=== PATIENT | male | born 2000 | race Asian ===

== ENCOUNTER 2019-11-10 22:03 | Emergency (ER) | payer MEDICARE, OTHER ==
[~2019-11-10] VITALS: Ht 170.2 cm; Wt 72.5 kg
[2019-11-10 22:55] LABS: HEMATOCRIT 45.7 % (41-53); HEMOGLOBIN 15.7 g/dL (13.5-17.5); LYMPHOCYTES % (AUTO) 21.4 % (22.0-44.0); MEAN CORPUSCULAR HEMOGLOBIN 29.9 pg (26.0-34.0); MEAN CORPUSCULAR HGB CONC 34.4 G/dL (31.0-37.0); MEAN CORPUSCULAR VOLUME 87 fL (80-100); NEUTROPHILS % (AUTO) 66.1 % (40.0-70.0); PLATELET COUNT (AUTO) 286 K/uL (150-450); RED BLOOD CELL COUNT(AUTO) 5.26 MIL/uL (4.50-5.90); RED CELL DISTRIBUTION WIDTH 12.7 % (11.5-14.5)
[2019-11-10 22:56] LABS: BASOPHILS % (AUTO) 0.3 % (0.0-2.0); LYMPHOCYTES # (AUTO) 1.7 K/uL (1.0-4.8); MONOCYTES # (AUTO) 0.9 K/uL (0.1-1.0); MONOCYTES % (AUTO) 11.2 % (2.0-9.0); NEUTROPHILS # (AUTO) 5.2 K/uL (1.8-7.7)
[2019-11-10 23:08] LABS: ANION GAP 5 mmol/L (8-16); CALCIUM, TOTAL 9.2 mg/dL (8.8-10.5); CARBON DIOXIDE 32 mmol/L (22-29); CHLORIDE 102 mmol/L (98-107); CREATININE 0.98 mg/dL (0.60-1.30); GLOMERULAR FILTR. RATE CALC > 60 mL/min (>60); GLUCOSE,RANDOM 102 mg/dL (70-110); POTASSIUM 4.3 mmol/L (3.5-5.1); SODIUM SERUM 139 mmol/L (136-145); UREA NITROGEN, BLOOD 9 mg/dL (7-18)
[2019-11-10 23:10] LABS: APPEARANCE,URINE CLEAR (CLEAR); BILIRUBIN,URINE NEGATIVE (NEGATIVE); GLUCOSE, URINE (UA) NEGATIVE (NEGATIVE); KETONES,URINE NEGATIVE (NEGATIVE); LEUKOCYTE ESTERASE ,URINE NEGATIVE (NEGATIVE); NITRATE,URINE NEGATIVE (NEGATIVE); OCCULT BLOOD,URINE NEGATIVE (NEGATIVE); PROTEIN,URINE NEGATIVE (NEGATIVE); UROBILINOGEN,URINE 0.2 mg/dL (<=1.0)
[2019-11-10 23:13] LABS: ALANINE AMINOTRANSFERASE 23 U/L (12-78); ALBUMIN 3.9 g/dL (3.4-5.0); ALKALINE PHOSPHATASE 68 U/L (46-116); ASPARTATE AMINOTRANSFERASE 16 U/L (15-37); BILIRUBIN,TOTAL 0.4 mg/dL (0.1-1.0); LIPASE 213 U/L (73-393)
[2019-11-10 23:15] VITALS: BP 136/78
[2019-11-10] MEDS ORDERED: PB/HYOSCY/ATR/SCOP/LIDO/MAALOX 55 ML BOTTLE PO ONE (23:30)
[2019-11-10] MEDS ORDERED: DICYCLOMINE HCL 10 MG/ML 2 ML AMP IM ONE (23:30)
[2019-11-11] MEDS ORDERED: ONDANSETRON HCL 4 MG TABLET PO ONE
[2019-11-11] MEDS ORDERED: FAMOTIDINE 20 MG TABLET PO ONE
== END 2019-11-11 00:20 | disposition home or self-care (01) ==
LOC: EMS 22:05
DX: K59.00 Constipation, unspecified (principal)
CPT/HCPCS: 36415; 80053; 81003; 83690; 85025; 96372; 99284; J0500; Q0162

== ENCOUNTER 2024-08-25 02:35 | Emergency (ER) | payer MEDICARE, OTHER ==
[~2024-08-25] VITALS: Ht 170.2 cm; Wt 75.0 kg
[2024-08-25 02:38] VITALS: TEMP 97.8
[2024-08-25] MEDS: EPINEPHrine 1:1,000 [1 MG/ML] VIAL SQ ONE (03:06)
[2024-08-25] MEDS: DiphenhydrAMINE HCL 50 MG/ML VIAL IVP ONE (03:06)
[2024-08-25] MEDS: MethylPREDNISolone SOD SUCC 125 MG/2 ML VIAL IVP ONE (03:07)
[2024-08-25 03:18] VITALS: PULSE 78; RESP 22; O2SAT 98
[2024-08-25 03:20] VITALS: PULSE 78; RESP 22; O2SAT 98
[2024-08-25] MEDS: ALBUTEROL SULFATE 2.5 MG/0.5 ML NEB SOLUTION NEB ONE (03:20)
[2024-08-25 03:34] VITALS: PULSE 87; RESP 20; O2SAT 98
[2024-08-25] MEDS ORDERED: PRED-554 PO (04:20)
[2024-08-25] MEDS ORDERED: DIPH50CA37 PO (04:20)
[2024-08-25] MEDS ORDERED: OMEP20 PO (04:20)
[2024-08-25 05:30] VITALS: BP 113/57; PULSE 87; RESP 16; O2SAT 95
== END 2024-08-25 05:48 | disposition home or self-care (01) ==
LOC: EMS 02:38
DX: T78.40XA Allergy, unspecified, initial encounter (principal); Z88.6 Allergy status to analgesic agent; Z91.013 Allergy to seafood; X58.XXXA Exposure to other specified factors, initial encounter
CPT/HCPCS: 99284; 96374; 96375; 94640; 96372; J1200; J0171; J2919